=== PATIENT | female | born 1970 | race Caucasian/White ===

== ENCOUNTER 2023-09-07 09:28 | Emergency (ER) | payer OTHER, SELFPAY ==
[2023-09-07 09:43] VITALS: BP 161/96
--- NOTE | 2023-09-07 10:04 | ED.GENMED ---
History of Present Illness
General
Chief Complaint: Nose Bleed
Source: patient
Exam Limitations: none
Time Seen by Provider: 09/07/23 09:49
Travel History
Have you had any contact with someone who has COVID-19?: No
Do you have any symptoms of coronavirus? Fever > 100 degrees, chills, cough, shortness of breath, sore throat, loss of taste or smell, muscle aches, or headache?: No
History of Present Illness
History of Present Illness:
See MDM
Past History
Past History
ED Past Medical History: HTN, Hypothyroidism and Other (Ovarian cyst)
ED Past Surgical History: None
Social History
Tobacco: Non-smoker
Alcohol: None
Personal:
Living: with family
Phy Exam
Physical Exam
Physical Exam:
See MDM
Course
Vital Signs
Initial and Last Documented VS:
Initial Vital Signs
Temp Pulse Resp BP Pulse Ox
98.1 F 71 18 161/96 100
09/07/23 09:43 09/07/23 09:43 09/07/23 09:43 09/07/23 09:43 09/07/23 09:43
Last Documented Vital Signs
Temp Pulse Resp BP Pulse Ox
98.1 F 71 18 161/96 100
09/07/23 09:43 09/07/23 09:43 09/07/23 09:43 09/07/23 09:43 09/07/23 09:43
Procedures
Nosebleed
Drug treatment: none
Treatment: Silver nitrate cautery
Post treatment bleeding: none- good control
MDM/Problems Addressed
Differential Diagnosis Includes:
HPI and MDM Narrative:
53-year-old female presenting with recurrent left-sided nosebleeds. Patient states she has had 5 nosebleeds in the past month. Given the persistent nature, she was sent into the ER for evaluation. Patient denies being on blood thinners. Bleeding
resolved on its own. Patient has required cautery in the past. She is interested in cauterizing the area
Physical exam
General: Well appearing and non-toxic
HEENT: protecting airway. Excoriation to mucosa to left nasal septum. No active bleed
Neck: appears supple
CV: No evidence of cyanosis
Resp: No accessory muscle use
Abd: Non-distended
Extremities: No deformities
Neuro: alert
Psych: Normal affect
Skin: Intact
Problems Addressed including Acute and Chronic Conditions affecting care:
1. Epistaxis
Acuity: acute
Prognosis: stable
Details: Silver cautery placed to cover the excoriated area. Discussed follow-up with ENT
2. Hypertension
Acuity: acute
Prognosis: stable
Details: Discussed having this reevaluated by PCP
Differential Diagnosis (but not limited to): Epistaxis, mucosal injury, anemia
Testing considered: CBC
Drug therapy (if applicable): OTC meds, please see d/c instruction regarding Rx drugs
Amount and/or Complexity of Data Reviewed
Clinical info obtained from: Patient
External data reviewed: N/A
Labs I independently reviewed (but not limited to): N/A
Radiology: N/A
Pulse Ox: not hypoxic
EKG independently reviewed: N/A
Print Shop Stenographer: N/A
Critical Care: N/A
Risk of Complication:
Social Determinants of health: Good social support
Discussed with other providers: N/A
Escalation of Care includes Admit/Obs: After being observed in the Emergency Department, pt stable for discharge.
Occasional wrong word or 'sound a like' substitutions may have occurred due to the inherent limitations of voice recognition software. Read the chart carefully and recognize, using context, where substitutions have occurred.
*Critical Care Note
Total Time (30-74mins, 75-104mins- exclusive of procedures): Not Applicable
ED Attending Note
-
Portions of this chart may have been created with voice recognition software.� Occasional wrong word or��sound alike� substitutions may have occurred due to the inherent limitations of voice recognition software.
Discharge Plan
Departure
Patient Disposition: Home (Routine Discharge)
Date of Disposition: 09/07/23
Time of Disposition: 10:05
Patient with high blood pressure during this ER visit?: Yes
Discharge Problem:
Acute anterior epistaxis
Instructions: Nosebleeds (DC), BLOOD PRESSURE
Prescriptions:
No Action
levothyroxine [Synthroid] 75 MCG tablet
100 mcg PO DAILY
fexofenadine [Josefa] 30 MG tablet
30 mg PO DAILY
cholecalciferol (vitamin D3) [Vitamin D3] 1,000 UNIT tablet
1,000 unit PO DAILY
norethindrone-e.estradiol-iron [Lo Loestrin Fe] 1 EACH tablet
1 ea PO DAILY
omeprazole magnesium [Prilosec OTC] 20 MG tablet,delayed release (DR/EC)
20 mg PO DAILY Qty: 30 0RF
oxycodone-acetaminophen 5 MG/325 MG tablet
1 - 2 tab PO Q4HPRN PRN (Reason: pain) Qty: 20 0RF
ibuprofen 400 MG tablet
400 mg PO Q4HPRN PRN (Reason: mild pain) Qty: 0 0RF
metaxalone [Skelaxin] 800 MG tablet
800 mg PO TIDPRN PRN (Reason: neck/back pain) Qty: 12 0RF
Referrals:
Quentin Paredes MD [Active] -
Activity Restrictions/Additional Instructions:
Please return for any worsening symptoms.
You may return at any time if you have further concerns.
Please follow up with your doctor at the first available appointment, preferably this week.
Given the ongoing nosebleeds, please make an appointment to see ENT.
Thank you for choosing [facility].
Interventions
Interventions:
*Risk Screen - Suicide Last Done: 09/07/23 09:43
*General Assessment Last Done: 09/07/23 09:43
*Neglect/Abuse Screening Last Done: 09/07/23 09:43
[2023-09-07 10:28] VITALS: BP 125/69
== END 2023-09-07 10:59 | disposition home or self-care (01) ==
LOC: EMR 09:28
PROVIDERS: EMERGENCY PHYSICIAN Student in an Organized Health Care Education/Training Program; FAMILY PHYSICIAN Physician Assistant Medical
DX: R04.0 Epistaxis (principal); I10 Essential (primary) hypertension
CPT/HCPCS: 99283; 30901

== ENCOUNTER → 2024-01-01 12:05 | Outpatient (REF) | payer OTHER, SELFPAY | LOC: HWRAD 12:05 | PROVIDERS: ATTENDING PHYSICIAN Physician Assistant Medical | DX: M25.551 Pain in right hip (principal) | CPT/HCPCS: 73502 ==

== ENCOUNTER → 2024-01-13 06:32 | Day surgery (SDC) | payer OTHER, SELFPAY | LOC: GI 06:32 | PROVIDERS: ATTENDING PHYSICIAN Internal Medicine Gastroenterology; FAMILY PHYSICIAN Physician Assistant Medical | DX: K29.50 Unspecified chronic gastritis without bleeding (principal); K20.90 Esophagitis, unspecified without bleeding; K44.9 Diaphragmatic hernia without obstruction or gangrene; K31.7 Polyp of stomach and duodenum; K31.89 Other diseases of stomach and duodenum; R13.10 Dysphagia, unspecified | CPT/HCPCS: 43239; 88305; 88342 ==

== ENCOUNTER → 2024-04-11 08:01 | Outpatient (REF) | payer OTHER, SELFPAY | LOC: HWWDC 08:01 | PROVIDERS: ATTENDING PHYSICIAN Nurse Practitioner Adult Health; FAMILY PHYSICIAN Physician Assistant Medical | DX: Z12.31 Encounter for screening mammogram for malignant neoplasm of breast (principal) | CPT/HCPCS: 77063; 77067 ==

== ENCOUNTER → 2024-08-15 15:07 | Outpatient (REF) | payer OTHER, SELFPAY | LOC: HWRAD 15:07 | PROVIDERS: ATTENDING PHYSICIAN Family Medicine | DX: R05.3 Chronic cough (principal) | CPT/HCPCS: 71046 ==

== ENCOUNTER 2024-08-27 00:11 | Emergency (ER) | payer OTHER, SELFPAY ==
[2024-08-27 00:27] VITALS: BP 176/110
[2024-08-27] MEDS: NSS 1000 IV (01:20)
[2024-08-27] MEDS: ZOFRAN 4 MG IV ×2 (01:20→03:44)
[2024-08-27 01:34] LABS: % Basophils 0.2 % (0-2); % Eosinophils 0.1 % (0-6); % Immature Granulocytes 0.7 % (0-0.5); % Lymphocytes 6.5 % (20.5-51.1); % Monocytes 6.7 % (1.7-9.3); % Neutrophils 85.8 % (42.2-75.2); Absolute Basophils 0.1 10^3/uL (0-0.2); Absolute Immature Granulocytes 0.2 10^3/uL (0-0.05); Absolute Lymphocytes 1.7 10^3/uL (1.2-3.4); Absolute Monocytes 1.7 10^3/uL (0.1-0.6); Absolute Neutrophils 21.6 10^3/uL (1.4-6.5); Hematocrit 37.7 % (37.0-47.0); Mean Corp Hgb Conc. 34.5 g/dL (33.0-37.0); Mean Corpuscular Hgb 27.6 pg (27.0-31.0); Mean Platelet Volume 8.2 fL (7.4-10.4); Nucleated Red Blood Cells % 0 %; Platelet Count 405 10^3/uL (130-400); Red Blood Cell Count 4.71 10^6/uL (4.20-5.40); Red Cell Dist. Width 13.4 % (11.5-14.5); White Blood Cell Count 25.2 10^3/uL (4.8-10.8)
[2024-08-27 02:09] LABS: ALT (SGPT) 28 U/L (0-35); AST (SGOT) 28 U/L (14-36); Albumin 4.6 g/dl (3.5-5.0); Alkaline Phosphatase 135 U/L (38-126); Blood Urea Nitrogen 22 mg/dl (7-17); Calcium 9.7 mg/dl (8.4-10.2); Carbon Dioxide 21 mmol/L (22-30); Chloride 103 mmol/L (98-107); Glucose 188 mg/dl (70-99); Lipase 223 U/L (23-300); Potassium 4.4 mmol/L (3.5-5.1); Sodium 139 mmol/L (135-145); Total Bilirubin 0.6 mg/dl (0.2-1.3); Total Protein 7.5 g/dl (6.3-8.2); eGFR > 60.00
--- NOTE | 2024-08-27 02:11 | ED.GENMED ---
History of Present Illness
General
Chief Complaint: Abdominal Symptoms
Source: patient
Exam Limitations: none
Time Seen by Provider: 08/27/24 01:22
Nursing documentation reviewed up to this point in time: agreed with
History of Present Illness
History of Present Illness:
This is a 54-year-old woman with history of hypertension, hyperlipidemia, hypothyroidism who presents with somewhat abrupt onset of nausea, vomiting, diarrhea that began around 9:30 PM approximately 2 hours after eating an egg roll. She admits to
generalized crampy abdominal pain, multiple episodes of nonbloody vomitus, multiple episodes of watery nonbloody stool. She admits to chills but does not believe she has had a fever.
No close contacts with similar symptoms. No recent travel.
She did recently complete a course of doxycycline a few days ago for treatment of sinus infection.
She denies risk of , has been menopausal for at least 10 years.
Past History
Past History
ED Past Medical History: HTN, Hypothyroidism and Other (Ovarian cyst)
ED Past Surgical History: Cholecystectomy and Orthopedic
Social History
Tobacco: Non-smoker
Alcohol: None
Personal:
Living: with family
Employment: Employed
Family History
Family History: Other (Noncontributory)
Phy Exam
Physical Exam
Physical Exam:
GENERAL: 54-year-old woman appears somewhat younger than stated age, awake and alert, appears mildly uncomfortable, mildly tremulous but afebrile. Easily communicative. is accompanying.
EYE: anicteric
NECK: Supple, nontender, no meningismus, no significant adenopathy.
ENT: oral mucosa is minimally dry. TM clear b/l, nares patent.
CARDIAC: Regular rate and rhythm. no murmur.
LUNGS: Clear breath sounds bilaterally, no acute respiratory distress, no wheezes/rales/rhonchi
ABDOMEN: Rotund, soft, nondistended, minimal generalized tenderness with deep palpation only, no r/g, no cvat. Mildly hyperactive bowel sounds.
NEUROLOGICAL: Alert and oriented x3, no focal neuro deficits. Gait is steady.
SKIN: Warm and dry, normal color, skin intact. No rash.
MUSCULOSKELETAL: No C/C/E. peripheral pulses are full and equal b/l. No palpable tenderness.
PSYCH: Normal and appropriate interaction. Mildly tremulous.
Course
Orders/Labs/Results
Orders:
Orders
08/27/24 01:17
IV Insert/Care/Rem.- Treatment PRN
Test Result ONCE
08/27/24 01:18
0.9% Sodium Chloride 1000 ml [Nss] 1,000 ml IV BOLUS
Ondansetron Injectable [Zofran] 4 mg .ROUTE .STK-MED ONE
08/27/24 01:19
Ondansetron Injectable [Zofran] 4 mg IV NOW STA
08/27/24 01:25
Beta HCG Quantitative Urgent
Comment: ADD ON
Complete Blood Count/With Diff Urgent
Comprehensive Metabolic Panel Urgent
HCG, Serum Qualitative Screen Urgent
Comment: Notify provider if positive test present
Lipase Urgent
08/27/24 02:10
0.9% Sodium Chloride 500 ml [Nss] 500 ml IV BOLUS
08/27/24 02:18
Add On- LAB Urgent
Tests Added?: quantitative HCG
08/27/24 03:37
CDIFF [C difficile Antigen & Toxins] Urgent
DEE Source: Feces/Stool
Specimen Description:
Date Specimen was Collected: 08/27/24
Time Specimen was Collected: 03:35
Norovirus by PCR Urgent
DEE Source: Feces/Stool
Specimen Description:
Date Specimen was Collected: 08/27/24
Time Specimen was Collected: 03:35
Stool Culture Urgent
DEE Source: Feces/Stool
Specimen Description:
Date Specimen was Collected: 08/27/24
Time Specimen was Collected: 03:35
08/27/24 03:42
Morphine Sulfate 4 mg .ROUTE .STK-MED ONE
Ondansetron Injectable [Zofran] 4 mg .ROUTE .STK-MED ONE
08/27/24 03:43
CT Abd/pelvis W Iv Cont Urgent
Comment:
Reason For Exam: gen abd pain, N/V/D
Morphine Sulfate 4 mg IV NOW STA
Ondansetron Injectable [Zofran] 4 mg IV NOW STA
08/27/24 05:07
Famotidine [Pepcid] 20 mg IV NOW STA
Metoclopramide [Reglan] 10 mg IV NOW STA
Abnormal Lab Results
08/27/24
01:25
WBC 25.2 H 10^3/uL
(4.8-10.8)
MCV 80.0 L fL
(81.0-99.0)
Plt Count 405 H 10^3/uL
(130-400)
Abs Immat Gran (auto) 0.2 H 10^3/uL
(0-0.05)
Absolute Neuts (auto) 21.6 H 10^3/uL
(1.4-6.5)
Absolute Monos (auto) 1.7 H 10^3/uL
(0.1-0.6)
Immature Gran % 0.7 H %
(0-0.5)
Neutrophils % 85.8 H %
(42.2-75.2)
Lymphocytes % 6.5 L %
(20.5-51.1)
Carbon Dioxide 21 L mmol/L
(22-30)
BUN 22 H mg/dl
(7-17)
Glucose 188 H mg/dl
(70-99)
Alkaline Phosphatase 135 H U/L
(38-126)
08/27/24 01:25
08/27/24 01:25
Vital Signs
Initial and Last Documented VS:
Initial Vital Signs
Temp Pulse Resp BP Pulse Ox
97.8 F 92 26 176/110 97
08/27/24 00:27 08/27/24 00:27 08/27/24 00:27 08/27/24 00:27 08/27/24 00:27
Last Documented Vital Signs
Temp Pulse Resp BP Pulse Ox
97.8 F 88 16 157/79 98
08/27/24 00:27 08/27/24 04:29 08/27/24 04:29 08/27/24 04:29 08/27/24 04:29
MDM/Problems Addressed
Differential Diagnosis Includes:
Concern for acute gastroenteritis, either viral versus foodborne. Other consideration is C. difficile colitis in light of recent antibiotic use.
No prior history of inflammatory bowel disease.
Concern for acute kidney injury, electrolyte abnormality.
IV fluids initiated and patient has been given an IV dose of Zofran. Nausea currently resolved.
If diarrhea recurs will obtain sample.
Labs are pending. Will consider imaging depending on clinical course and laboratory findings.
*Radiology
Radiology exam reviewed: radiology read reviewed (CAT scan shows fluid throughout the colon compatible with underlying diarrheal state. No bowel obstruction. Small hiatal hernia)
*Pulse Oximetry
Patient hypoxic: no
*Critical Care Note
Total Time (30-74mins, 75-104mins- exclusive of procedures): Not Applicable
Update Note
Update Note:
06:10
Labs remarkable for moderately elevated white blood cell count of 25. Essentially unremarkable chemistries save for random glucose elevation of 188.
Nursing staff ordered a qualitative hCG prior to knowledge that patient has been menopausal for a number of years. hCG is questionably/weakly positive. I highly suspect this is a false positive.
Quantitative hCG is quite low at 3.31 likely false positive.
She continues with moderate nausea despite IV Zofran x 2. She has passed 1 small loose stool, stool has been sent for culture, C. difficile, norovirus. Results are pending.
Due to elevated white blood cell count, continued nausea and continued crampy abdominal pain CT of the abdomen pelvis obtained which shows fluid throughout the colon compatible with diarrheal state.
After additional IV fluids, and IV dose of Reglan and Pepcid she is feeling markedly improved. No further diarrhea, no further nausea and is now tolerating ice chips, clear liquids.
I highly suspect viral versus foodborne gastroenteritis.
Will discharge to home with prescription for oral Reglan for as needed nausea, Lomotil for as needed diarrhea and will prescribe a few Bentyl for as needed crampy abdominal pain.
Recommend limiting diet to clear liquids today, slowly advance as tolerated to soft bland foods tomorrow.
Prompt follow-up with PCP for recheck.
Return precautions discussed.
ED Attending Note
-
Portions of this chart may have been created with voice recognition software.� Occasional wrong word or��sound alike� substitutions may have occurred due to the inherent limitations of voice recognition software.
Discharge Plan
Departure
Patient Disposition: Home (Routine Discharge)
Date of Disposition: 08/27/24
Time of Disposition: 06:22
Patient with high blood pressure during this ER visit?: No
Condition: Good
Discharge Problem:
Acute gastroenteritis
Instructions: Viral gastroenteritis in adults, Clear Liquid Diet
Prescriptions:
New
diphenoxylate-atropine [Lomotil] 2.5-0.025 mg tablet
1 tab PO QID PRN (Reason: diarrhea) Qty: 14 0RF
dicyclomine 20 mg tablet
20 mg PO QID PRN (Reason: abdominal pain) Qty: 20 0RF
metoclopramide HCl 5 mg/5 mL solution
10 mg PO Q6H PRN (Reason: nausea and vomiting) Qty: 240 0RF
No Action
levothyroxine [Synthroid] 75 MCG tablet
100 mcg PO DAILY
fexofenadine [Josefa] 30 MG tablet
30 mg PO DAILY
cholecalciferol (vitamin D3) [Vitamin D3] 1,000 UNIT tablet
1,000 unit PO DAILY
norethindrone-e.estradiol-iron [Lo Loestrin Fe] 1 EACH tablet
1 ea PO DAILY
omeprazole magnesium [Prilosec OTC] 20 MG tablet,delayed release (DR/EC)
20 mg PO DAILY Qty: 30 0RF
oxycodone-acetaminophen 5 MG/325 MG tablet
1 - 2 tab PO Q4HPRN PRN (Reason: pain) Qty: 20 0RF
ibuprofen 400 MG tablet
400 mg PO Q4HPRN PRN (Reason: mild pain) Qty: 0 0RF
metaxalone [Skelaxin] 800 MG tablet
800 mg PO TIDPRN PRN (Reason: neck/back pain) Qty: 12 0RF
Referrals:
UNKNOWN - PT DOES,NOT KNOW [Family Provider] -
Interventions
Interventions:
*Risk Screen - Suicide Last Done: 08/27/24 00:27
*General Assessment Last Done: 08/27/24 02:18
*ED COVID-19 Vaccine History Last Done: 08/27/24 02:18
DV-Zyqumh-Hfoiplokso Assessment Last Done: 08/27/24 02:18
Discharge Date and Time
Print Language: KHMER
[2024-08-27] MEDS: NSS 500 IV (02:13)
[2024-08-27 02:18] VITALS: BP 130/98; BMI 41.2
[2024-08-27 02:26] LABS: Beta HCG Quantitative 3.31 mIU/ml
[2024-08-27] MEDS: MORPHINE SULFATE 4 MG IV (03:44)
[2024-08-27 04:29] VITALS: BP 157/79
[2024-08-27] MEDS: PEPCID 20 MG IV (05:16)
[2024-08-27] MEDS: REGLAN 10 MG IV (05:16)
[2024-08-27 06:28] VITALS: BP 136/75
== END 2024-08-27 07:16 | disposition home or self-care (01) ==
LOC: EMR 00:11
PROVIDERS: EMERGENCY PHYSICIAN Emergency Medicine
DX: K52.9 Noninfective gastroenteritis and colitis, unspecified (principal); E78.00 Pure hypercholesterolemia, unspecified; E03.9 Hypothyroidism, unspecified; I10 Essential (primary) hypertension; Z90.49 Acquired absence of other specified parts of digestive tract
CPT/HCPCS: 99284; 74177; 80053; 83690; 84702; 84703; 85025; 87045; 87046; 87324; 87427; 87449; 87798; Q9967

== ENCOUNTER 2024-12-12 06:23 | Day surgery (SDC) | payer OTHER, SELFPAY | END 2024-12-12 11:08 | disposition home or self-care (01) | LOC: GI 06:23 | PROVIDERS: ATTENDING PHYSICIAN Internal Medicine Gastroenterology; FAMILY PHYSICIAN Physician Assistant Medical | DX: R19.4 Change in bowel habit (principal); K64.8 Other hemorrhoids; K63.9 Disease of intestine, unspecified | CPT/HCPCS: 45380; 88305 ==

== ENCOUNTER 2025-03-21 12:22 | Outpatient (RCR) | payer OTHER, SELFPAY | END 2025-03-21 23:59 | disposition home or self-care (01) | LOC: ROT 12:22 | PROVIDERS: ATTENDING PHYSICIAN Orthopaedic Surgery Hand Surgery; FAMILY PHYSICIAN Physician Assistant Medical | DX: M65.312 Trigger thumb, left thumb (principal); Z47.89 Encounter for other orthopedic aftercare (principal); Z73.6 Limitation of activities due to disability | CPT/HCPCS: 97010; 97018; 97110; 97140; 97166; 97530; 97535 ==

== ENCOUNTER → 2025-04-12 07:57 | Outpatient (REF) | payer OTHER, SELFPAY | LOC: HWWDC 07:57 | PROVIDERS: ATTENDING PHYSICIAN Nurse Practitioner Adult Health; FAMILY PHYSICIAN Physician Assistant Medical | DX: Z12.31 Encounter for screening mammogram for malignant neoplasm of breast (principal) | CPT/HCPCS: 77063; 77067 ==

== ENCOUNTER 2025-04-19 13:20 | Outpatient (RCR) | payer OTHER, SELFPAY | END 2025-04-19 23:59 | disposition home or self-care (01) | LOC: ROT 13:20 | PROVIDERS: ATTENDING PHYSICIAN Orthopaedic Surgery Hand Surgery; FAMILY PHYSICIAN Physician Assistant Medical | DX: Z47.89 Encounter for other orthopedic aftercare (principal); M65.312 Trigger thumb, left thumb; Z73.6 Limitation of activities due to disability | CPT/HCPCS: 97010; 97018; 97110; 97140; 97535 ==